=== PATIENT | female | born 1995 | race Caucasian/White ===

== ENCOUNTER 2020-01-24 22:58 | Emergency (ER) | payer OTHER ==
[~2020-01-24] VITALS: Ht 157.5 cm; Wt 65.3 kg
[2020-01-25] MEDS ORDERED: ISOVUE-370 76% 100ML VIAL (Q9967) As Ordered ONE (00:05)
[2020-01-25 00:15] LABS: BASO % 0.5 % (0.0-1.0); EOS # 0.2 10^3/uL (0.0-0.5); EOS % 1.7 % (0.0-3.0); HEMOGLOBIN 13.1 g/dl (12.0-15.5); LYMPH # 2.4 10^3/uL (1.5-5.0); LYMPH % 27.3 % (24.0-44.0); MEAN CORPUSCULAR HEMOGLOBIN 28.1 pg (27.0-33.0); MEAN CORPUSCULAR HGB CONC 33.6 g/dl (32.0-36.5); MEAN CORPUSCULAR VOLUME 83.5 fl (80.0-96.0); MONO # 0.4 10^3/uL (0.0-0.8); MONO % 4.7 % (0.0-5.0); NEUTROPHILS # 5.8 10^3/uL (1.5-8.5); NEUTROPHILS % 65.1 % (36.0-66.0); PLATELET COUNT, AUTOMATED 268 10^3/uL (150-450); RED BLOOD COUNT 4.67 10^6/uL (4.00-5.40); WHITE BLOOD COUNT 8.9 10^3/uL (4.0-10.0)
[2020-01-25 00:36] LABS: CK-MB VALUE MASS < 1.0 NG/ML (<3.6); CPK CREATINE PHOSPHOKINASE 124 U/L (26-192); FREE T4 1.14 NG/DL (0.76-1.46); HCG, SERUM QUALITATIVE NEGATIVE (NEGATIVE); MB/CK RELATIVE INDEX 0.81 (< OR =4); TROPONIN I < 0.02 NG/ML (< 0.10)
--- NOTE | 2020-01-25 01:24 | ECGEPIP ---
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
[2020-01-25 01:45] VITALS: BP 118/77
--- NOTE | 2020-01-25 07:57 | REP ---
Portable chest x-ray: Single view. History: Chest pain. Findings: EKG monitoring electrodes overlie the chest. Heart is not enlarged. Pulmonary vasculature is not increased. Pleural angles are sharp. No bony abnormality is seen. Impression: Negative portable chest x-ray. Electronically Signed by Balbir Henry MD 01/25/2020 07:48 A
== END 2020-01-25 02:00 | disposition home or self-care (01) ==
LOC: M ED 22:58
DX: F41.9 Anxiety disorder, unspecified (principal); F45.0 Somatization disorder

== ENCOUNTER → 2023-08-16 | Outpatient (REF) | payer OTHER | LOC: M LAB REF 17:49 | PROVIDERS: ATTEND Physician Assistant | DX: J02.9 Acute pharyngitis, unspecified (principal) ==

== ENCOUNTER 2024-07-09 14:04 | Emergency (ER) | payer OTHER ==
[~2024-07-09] VITALS: Ht 154.9 cm; Wt 79.8 kg
[2024-07-09] MEDS ORDERED: FLUO-365 (14:09)
[2024-07-09 14:51] LABS: BASO # 0.1 10^3/uL (0.0-0.2); BASO % 0.4 % (0.0-1.0); EOS # 0.3 10^3/uL (0.0-0.5); EOS % 2.3 % (0.0-3.0); HEMATOCRIT 40.6 % (36.0-47.0); HEMOGLOBIN 13.2 g/dl (12.0-15.5); LYMPH # 2.9 10^3/uL (1.5-5.0); LYMPH % 21.8 % (24.0-44.0); MEAN CORPUSCULAR HEMOGLOBIN 26.5 pg (27.0-33.0); MEAN CORPUSCULAR HGB CONC 32.5 g/dl (32.0-36.5); MEAN CORPUSCULAR VOLUME 81.4 fl (80.0-96.0); MONO # 0.8 10^3/uL (0.0-0.8); NEUTROPHILS # 9.2 10^3/uL (1.5-8.5); NEUTROPHILS % 69.1 % (36.0-66.0); PLATELET COUNT, AUTOMATED 346 10^3/uL (150-450); RED BLOOD COUNT 4.99 10^6/uL (4.00-5.40); WHITE BLOOD COUNT 13.3 10^3/uL (4.0-10.0)
[2024-07-09 15:16] LABS: LIPASE 43 U/L (12-53)
[2024-07-09 15:18] LABS: ALBUMIN 4.1 G/DL (3.2-5.2); ALKALINE PHOSPHATASE 119 U/L (46-116); ALT/SGPT 19 U/L (7.0-40); AST/SGOT 12 U/L (<34); BILIRUBIN,DIRECT 0.2 MG/DL (<0.4); BILIRUBIN,TOTAL 0.6 MG/DL (0.3-1.2); TOTAL PROTEIN 7.4 G/DL (5.7-8.2)
[2024-07-09 15:22] LABS: HCG, SERUM QUALITATIVE NEGATIVE (NEGATIVE)
[2024-07-09] MEDS ORDERED: ISOVUE-370 76% 100ML VIAL As Ordered ONE (15:56)
[2024-07-09] MEDS: LIDOCAINE VISCOUS 2% SOLN 15ML UDC PO ONE (16:19)
[2024-07-09] MEDS: MAALOX 30 ML SUSP *UDC PO ONE (16:20)
[2024-07-09] MEDS: KETOROLAC 30 MG/ML 1ML VIAL IV ONE (17:18)
[2024-07-09] MEDS: ONDANSETRON 4MG 2ML VIAL IV ONE (17:18)
[2024-07-09] MEDS ORDERED: FAMO20TA PO (18:00)
[2024-07-09 18:16] VITALS: BP 116/75; TEMP 98.9; O2SAT 96
== END 2024-07-09 18:20 | disposition home or self-care (01) ==
LOC: M ED 14:04
DX: R10.13 Epigastric pain (principal); N83.202 Unspecified ovarian cyst, left side; K21.9 Gastro-esophageal reflux disease without esophagitis; F12.10 Cannabis abuse, uncomplicated; F10.10 Alcohol abuse, uncomplicated; Z79.899 Other long term (current) drug therapy
CPT/HCPCS: 74177; 80047; 80076; 81001; 83690; 84703; 85025; 87086; 96374; 99284; J1885; J2405; Q9967